=== PATIENT | male | born 1980 | race Caucasian/White ===

== ENCOUNTER 2020-01-15 23:16 | Emergency (ER) | payer OTHER ==
[~2020-01-15] VITALS: Ht 182.8 cm; Wt 86.2 kg
[~2020-01-15 23:16] MED LIST: CHLORDIAZEPOXID25 MG PO; HYDROCODONE BIT1 T11 PO; IBU800 MG PO; MOTRIN800 MG PO; PEN-V500 MG PO; PERCOCET 325 MG1 TA7 PO; ZOFRAN4 MG PO
[2020-01-15] MEDS ORDERED: CEFADROXIL500 M1 PO (23:34)
== END 2020-01-15 23:50 | disposition home or self-care (01) ==
LOC: ED 23:16
DX: S61.411A Laceration without foreign body of right hand, initial encounter (principal); W45.0XXA Nail entering through skin, initial encounter; Y93.89 Activity, other specified; Y92.89 Other specified places as the place of occurrence of the external cause; Y99.0 Civilian activity done for income or pay

== ENCOUNTER 2021-09-17 17:18 | Emergency (ER) | payer OTHER ==
[~2021-09-17] VITALS: Ht 185.4 cm; Wt 104.8 kg
[~2021-09-17 17:18] MED LIST changes: +CEFADROXIL500 M1 PO
[2021-09-17] MEDS ORDERED: NAPROSYN500 MG PO (17:59)
== END 2021-09-17 19:56 | disposition home or self-care (01) ==
LOC: ED 17:18
DX: S49.91XA Unspecified injury of right shoulder and upper arm, initial encounter (principal); X58.XXXA Exposure to other specified factors, initial encounter; Y93.89 Activity, other specified; Y92.89 Other specified places as the place of occurrence of the external cause; Y99.8 Other external cause status

== ENCOUNTER 2022-11-28 15:30 | Emergency (ER) | payer OTHER ==
[~2022-11-28] VITALS: Ht 185.4 cm; Wt 102.5 kg
[~2022-11-28 15:30] MED LIST changes: +NAPROSYN500 MG PO
[2022-11-28 16:08] LABS: BILIRUBIN Negative (Negative); BLOOD Negative (Negative); CLARITY Clear (Clear); COLOR Yellow (Yellow); GLUCOSE Negative (Negative); KETONE Trace (Negative); LEUKO ESTERASE Negative (Negative); NITRITE Negative (Negative); SPECIFIC GRAVITY 1.025 (1.001-1.030)
[2022-11-28 16:39] LABS: RBC 0-2 rbc/hpf (0-2); WBC 0-2 wbc/hpf (0-5)
[2022-11-28] MEDS ORDERED: VIBRAMYCIN100 MG PO (17:09)
== END 2022-11-28 17:14 | disposition home or self-care (01) ==
LOC: ED 15:30
PROVIDERS: Physician Assistant
DX: A64 Unspecified sexually transmitted disease (principal); Z98.890 Other specified postprocedural states; Z04.89 Encounter for examination and observation for other specified reasons

== ENCOUNTER 2022-12-28 13:29 | Emergency (ER) | payer MEDICAID ==
[~2022-12-28] VITALS: Ht 185.4 cm; Wt 100.7 kg
[~2022-12-28 13:29] MED LIST changes: +VIBRAMYCIN100 MG PO
[2022-12-28 14:55] LABS: HEMATOCRIT 50.2 % (42.0-52.0); MEAN CORPUSCULAR HGB 32.9 pg (27.0-31.0); MEAN CORPUSCULAR HGB CONC 32.9 g/dl (33.0-37.0); MEAN PLATELET VOLUME 11.3 fl (9.6-12.3); PLATELET COUNT AUTOMATED 230 10*3/uL (130-400); RED BLOOD COUNT 5.02 10*6/uL (4.50-5.90); RED CELL DISTRI WIDTH 13.5 % (0-14.5); WHITE BLOOD COUNT 17.8 10*3/uL (4.8-10.8)
[2022-12-28 15:00] LABS: MANUAL DIFF REFLEX YES
[2022-12-28 15:12] LABS: ALKALINE PHOSPHATASE 91 U/L (46-116); BUN 5 mg/dl (9-23); CHLORIDE 101 mmol/L (98-107); POTASSIUM 4.3 mmol/L (3.4-5.1); SGPT/ALT 41 U/L (10-49); TOTAL PROTEIN 6.9 gm/dL (6.0-8.0)
[2022-12-28 15:36] LABS: PLATELET SUFFICIENCY NORMAL (NORMAL); TOTAL CELLS COUNTED 100 #CELLS
[2022-12-28] MEDS ORDERED: SEPTDS PO (15:53)
[2022-12-28] MEDS ORDERED: CEPHALEXIN500 M1 PO (15:53)
[2022-12-29 06:08] LABS: HEPATITIS B SURFACE AG Negative (Negative)
== END 2022-12-28 15:55 | disposition left against medical advice (07) ==
LOC: ED 13:29
PROVIDERS: Physician Assistant
DX: L03.122 Acute lymphangitis of left axilla (principal)

== ENCOUNTER 2024-07-18 00:24 | Emergency (ER) | payer MEDICAID ==
[~2024-07-18] VITALS: Ht 187.9 cm; Wt 96.2 kg
[~2024-07-18 00:24] MED LIST changes: +CEPHALEXIN500 M1 PO; +SEPTDS PO
[2024-07-18] MEDS ORDERED: Ketorolac Tromethamine 60 MG/2 ML VIAL IM ONE (00:40)
[2024-07-18] MEDS ORDERED: Dexamethasone Sodium Phospha 20 MG/5 ML VIAL IM ONE (00:40)
[2024-07-18] MEDS ORDERED: Cyclobenzaprine Hydrochlorid 10 MG TAB PO ONE (00:40)
[2024-07-18] MEDS ORDERED: MEDROL DOSEPAK4 MG PO (01:33)
[2024-07-18] MEDS ORDERED: MELOXICAM15 MG PO (01:33)
[2024-07-18] MEDS ORDERED: CYCLOBENZAPRINE5 M3 PO (01:33)
[2024-07-18] MEDS ORDERED: PAIN RELIEF1 EACH T (01:33)
== END 2024-07-18 01:22 | disposition home or self-care (01) ==
LOC: ED 00:24
DX: M54.2 Cervicalgia (principal); M25.511 Pain in right shoulder; M79.2 Neuralgia and neuritis, unspecified; F10.10 Alcohol abuse, uncomplicated; Z98.890 Other specified postprocedural states; Z87.891 Personal history of nicotine dependence

== ENCOUNTER 2024-07-25 13:35 | Emergency (ER) | payer MEDICAID ==
[~2024-07-25] VITALS: Ht 187.9 cm; Wt 99.9 kg
[~2024-07-25 13:35] MED LIST changes: +CYCLOBENZAPRINE5 M3 PO; +MEDROL DOSEPAK4 MG PO; +MELOXICAM15 MG PO; +PAIN RELIEF1 EACH T
[2024-07-25 14:42] LABS: HEMATOCRIT 52.6 % (42.0-52.0); MEAN CELL VOLUME 103.3 fl (80.0-94.0); MEAN CORPUSCULAR HGB 33.8 pg (27.0-31.0); MEAN CORPUSCULAR HGB CONC 32.7 g/dl (33.0-37.0); MEAN PLATELET VOLUME 10.7 fl (9.6-12.3); PLATELET COUNT AUTOMATED 234 10*3/uL (130-400); RED BLOOD COUNT 5.09 10*6/uL (4.50-5.90); RED CELL DISTRI WIDTH 13.4 % (0-14.5); WHITE BLOOD COUNT 13.5 10*3/uL (4.8-10.8)
[2024-07-25 14:43] LABS: MANUAL DIFF REFLEX YES
[2024-07-25 14:59] LABS: ALKALINE PHOSPHATASE 141 U/L (46-116); BUN 8 mg/dl (9-23); CHLORIDE 108 mmol/L (98-107); POTASSIUM 3.8 mmol/L (3.4-5.1); SGPT/ALT 22 U/L (5-49); TOTAL PROTEIN 7.2 gm/dL (6.0-8.0)
[2024-07-25 15:22] LABS: BASOPHILS 1 % (0-1); OVALOCYTES FEW; PLATELET SUFFICIENCY NORMAL (NORMAL); SPHEROCYTES FEW; TOTAL CELLS COUNTED 100 #CELLS
[2024-07-25] MEDS ORDERED: CEPHALEXIN500 M1 PO (15:50)
[2024-07-25] MEDS ORDERED: SEPTDS PO (15:50)
== END 2024-07-25 16:14 | disposition home or self-care (01) ==
LOC: ED 13:35
PROVIDERS: Physician Assistant Medical
DX: L03.116 Cellulitis of left lower limb (principal); Z98.890 Other specified postprocedural states

== ENCOUNTER 2024-08-31 19:35 | Emergency (ER) | payer MEDICAID ==
[~2024-08-31] VITALS: Ht 187.9 cm; Wt 99.8 kg
[2024-08-31] MEDS ORDERED: methylPREDNISolone sod succ 125 MG VIAL IM ONE (22:25)
[2024-08-31] MEDS ORDERED: Dexamethasone Sodium Phospha 20 MG/5 ML VIAL IM ONE (22:30)
[2024-09-01] MEDS ORDERED: Acetaminophen/Oxycodone 5 MG/325 MG TABLET PO ONE (00:10)
[2024-09-01] MEDS ORDERED: Cyclobenzaprine Hydrochlorid 10 MG TAB PO ONE (00:10)
[2024-09-01] MEDS ORDERED: ZITHROMAX250 MG PO (01:06)
[2024-09-01] MEDS ORDERED: MEDROL DOSEPAK4 MG PO (01:06)
[2024-09-01] MEDS ORDERED: CYCLOBENZAPRINE10 MG PO (01:06)
[2024-09-01] MEDS ORDERED: HYDROCODONE-AC1 EAC1 PO (01:07)
== END 2024-09-01 02:14 | disposition home or self-care (01) ==
LOC: ED 19:35
DX: S16.1XXA Strain of muscle, fascia and tendon at neck level, initial encounter (principal); S39.92XA Unspecified injury of lower back, initial encounter; M54.12 Radiculopathy, cervical region; M54.50 Low back pain, unspecified; J18.9 Pneumonia, unspecified organism; Z98.890 Other specified postprocedural states; W01.0XXA Fall on same level from slipping, tripping and stumbling without subsequent striking against object, initial encounter; Y93.E1 Activity, personal bathing and showering; Y92.009 Unspecified place in unspecified non-institutional (private) residence as the place of occurrence of the external cause; Y99.8 Other external cause status

== ENCOUNTER → 2024-10-27 | Outpatient (CLI) | payer MEDICAID ==
[~2024-10-27] MED LIST changes: +CYCLOBENZAPRINE10 MG PO; +HYDROCODONE-AC1 EAC1 PO; +ZITHROMAX250 MG PO
== END | disposition home or self-care (01) ==
LOC: MRI 03:41
PROVIDERS: ATTEND Family Medicine
DX: M47.816 Spondylosis without myelopathy or radiculopathy, lumbar region (principal); R60.0 Localized edema; M43.16 Spondylolisthesis, lumbar region; M48.061 Spinal stenosis, lumbar region without neurogenic claudication

== ENCOUNTER 2025-03-28 10:55 | Emergency (ER) | payer MEDICAID ==
[~2025-03-28] VITALS: Ht 187.9 cm
[2025-03-28] MEDS ORDERED: ceFAZolin sodium/sodium chlor 10 ML IV ONE (11:25)
[2025-03-28] MEDS ORDERED: SODIUM CHLORIDE 0.9% 1,000 ML IV ONE (11:25)
[2025-03-28] MEDS ORDERED: Sulfamethoxazole/Trimethopri 1 TAB TAB PO ONE (11:25)
[2025-03-28 11:44] LABS: BASO # 0.1 10*3/uL (0.0-0.1); BASO % 0.5 % (0.0-1.0); EOS # 0.2 10*3/uL (0.0-0.4); EOS % 2.6 % (1.0-4.0); HEMATOCRIT 44.1 % (42.0-52.0); MEAN CORPUSCULAR HGB 33.1 pg (27.0-31.0); MEAN CORPUSCULAR HGB CONC 33.8 g/dl (33.0-37.0); MEAN PLATELET VOLUME 10.6 fl (9.6-12.3); MONO # 1.1 10*3/uL (0.1-1.0); MONO % 11.8 % (3.0-9.0); NEUT # 6.6 10*3/uL (2.3-7.9); PLATELET COUNT AUTOMATED 263 10*3/uL (130-400); RED CELL DISTRI WIDTH 13.4 % (0-14.5); WHITE BLOOD COUNT 9.2 10*3/uL (4.8-10.8)
[2025-03-28 12:00] LABS: BUN 12 mg/dl (9-23); CHLORIDE 104 mmol/L (98-107); POTASSIUM 4.1 mmol/L (3.4-5.1)
[2025-03-28] MEDS ORDERED: CEPHALEXIN500 M1 PO (12:18)
[2025-03-28] MEDS ORDERED: SEPTDS PO (12:18)
== END 2025-03-28 12:26 | disposition home or self-care (01) ==
LOC: ED 10:55
PROVIDERS: Emergency Medicine
DX: L03.115 Cellulitis of right lower limb (principal); L03.116 Cellulitis of left lower limb; Z98.890 Other specified postprocedural states